=== PATIENT | female | born 1980 | race Caucasian/White ===

== ENCOUNTER 2022-01-30 11:21 | Emergency (ER) | payer OTHER ==
[2022-01-30] MEDS ORDERED: Fluorescein 1 MG Ophth Strip EYERT ONE (11:52)
== END 2022-01-30 12:49 | disposition home or self-care (01) ==
LOC: JD.ED 11:21
DX: S05.01XA Injury of conjunctiva and corneal abrasion without foreign body, right eye, initial encounter (principal); H11.31 Conjunctival hemorrhage, right eye; Z91.040 Latex allergy status; Z88.0 Allergy status to penicillin
CPT/HCPCS: 99282; 99283

== ENCOUNTER 2022-07-13 06:22 | Day surgery (SDC) | payer MEDICAID, OTHER ==
[~2022-07-13 06:22] MED LIST: Lactated Ringers 1,000 ML IV SCH; Lidocaine 1%/Sod Bicarbonate in NS 8.4% 1 ML Syringe IDERM PRN; Sodium Chloride 0.9% 10 ML Syringe FLUSH PRN; Sodium Chloride 0.9% 10 ML Syringe FLUSH SCH
[2022-07-13] MEDS ORDERED: Scopolamine 1.5 MG Transdermal Patch TOP ONE (06:40)
[2022-07-13] MEDS ORDERED: Ondansetron 4 MG/2 ML SDV IVPUSH PRN (06:41)
[2022-07-13] MEDS ORDERED: HYDROmorphone 0.5 MG/0.5 ML Syringe IVPUSH PRN (06:41)
[2022-07-13] MEDS ORDERED: fentaNYL 100 MCG/2 ML SDV IVPUSH PRN (06:41)
[2022-07-13] MEDS ORDERED: Bupivacaine 0.5% 30 ML SDV ONE (06:51)
[2022-07-13] MEDS ORDERED: Midazolam 1 MG/ML 2 ML SDV ONE (06:53)
[2022-07-13] MEDS ORDERED: fentaNYL 100 MCG/2 ML SDV ONE ×2 (06:53→07:56)
[2022-07-13] MEDS ORDERED: Propofol 200 MG/20 ML SDV ONE (06:53)
[2022-07-13] MEDS ORDERED: Lidocaine 1% 5 ML VIAL ONE (06:54)
[2022-07-13] MEDS ORDERED: Rocuronium 50 MG/5 ML Vial ONE (06:54)
[2022-07-13] MEDS ORDERED: Ondansetron 4 MG/2 ML SDV ONE (06:57)
[2022-07-13] MEDS ORDERED: Dexamethasone 4 MG/ML 5 ML MDV ONE (06:57)
[2022-07-13] MEDS ORDERED: ceFAZolin 2 GM Vial ONE (07:01)
[2022-07-13] MEDS ORDERED: Dexmedetomidine 200 MCG/2 ML SDV ONE (07:40)
[2022-07-13] MEDS ORDERED: Neostigmine Methylsulfate 10 MG/10 ML MDV ONE (08:15)
[2022-07-13] MEDS ORDERED: Lactated Ringers 1,000 ML ONE (08:19)
[2022-07-13] MEDS ORDERED: Ketorolac 30 MG/ML SDV ONE (08:19)
[2022-07-13] MEDS ORDERED: HYDROmorphone 0.5 MG/0.5 ML Syringe ONE (08:21)
[2022-07-13] MEDS ORDERED: traMADol 50 MG Tab PO PRN (08:31)
[2022-07-13] MEDS ORDERED: traMADol 50 MG Tab PO ONE (09:32)
[2022-07-13] MEDS ORDERED: traMADol 50 MG Tab PO SCH (10:29)
== END 2022-07-13 10:50 | disposition home or self-care (01) ==
LOC: JD.SDS 06:22
PROVIDERS: ATTEND Obstetrics & Gynecology
DX: N83.511 Torsion of right ovary and ovarian pedicle (principal); N83.8 Other noninflammatory disorders of ovary, fallopian tube and broad ligament; N80.121 Deep endometriosis of right ovary; N83.201 Unspecified ovarian cyst, right side; F41.9 Anxiety disorder, unspecified; J30.9 Allergic rhinitis, unspecified; K58.9 Irritable bowel syndrome, unspecified; G47.00 Insomnia, unspecified; F17.210 Nicotine dependence, cigarettes, uncomplicated; Z88.0 Allergy status to penicillin; Z91.040 Latex allergy status; Z79.899 Other long term (current) drug therapy; Z98.890 Other specified postprocedural states; Z90.710 Acquired absence of both cervix and uterus
CPT/HCPCS: 36415; 58661; 86850; 86900; 86901; A9270; J0690; J1100; J1170; J1885; J2250; J2405; J2704; J2710; J3010; J3490; J7120; 00840